=== PATIENT | female | born 1990 ===

== ENCOUNTER 2023-04-27 08:15 | Outpatient (CLI) | payer OTHER ==
[2023-04-28] MEDS ORDERED: SYNTHROID100 MCG PO (09:44)
== END 2023-04-27 09:28 | disposition home or self-care (01) ==
LOC: PRENATAL 08:15
PROVIDERS: ATTEND Obstetrics & Gynecology Maternal & Fetal Medicine
DX: O35.3XX0 Maternal care for (suspected) damage to fetus from viral disease in mother, not applicable or unspecified (principal); O44.00 Complete placenta previa NOS or without hemorrhage, unspecified trimester; O99.280 Endocrine, nutritional and metabolic diseases complicating pregnancy, unspecified trimester; Z3A.21 21 weeks gestation of pregnancy

== ENCOUNTER 2023-07-20 08:35 | Outpatient (CLI) | payer OTHER ==
[~2023-07-20 08:35] MED LIST: SYNTHROID100 MCG PO
== END 2023-07-20 11:00 | disposition home or self-care (01) ==
LOC: PRENATAL 08:35
PROVIDERS: ATTEND Obstetrics & Gynecology Maternal & Fetal Medicine
DX: O26.849 Uterine size-date discrepancy, unspecified trimester (principal); O36.8199 Decreased fetal movements, unspecified trimester, other fetus; O99.280 Endocrine, nutritional and metabolic diseases complicating pregnancy, unspecified trimester; Z3A.33 33 weeks gestation of pregnancy